=== PATIENT | female | born 1970 | race Caucasian/White ===

== ENCOUNTER 2018-06-18 10:27 | Outpatient (CLI) | payer OTHER | END 2018-06-18 10:33 | disposition home or self-care (01) | LOC: SONOGRAMA 10:27 | DX: N92.0 Excessive and frequent menstruation with regular cycle (principal); N84.0 Polyp of corpus uteri ==

== ENCOUNTER 2018-08-15 05:58 | Day surgery (SDC) | payer OTHER ==
[~2018-08-15 05:58] MED LIST: COUMADIN5 MG PO
[2018-08-15] MEDS ORDERED: DOXYCYCLINE HY100 MG PO (12:06)
[2018-08-15] MEDS ORDERED: CODE1TAB37 PO (12:06)
== END 2018-08-15 17:01 | disposition home or self-care (01) ==
LOC: CIR.AMB 05:58
DX: N84.0 Polyp of corpus uteri (principal); D25.0 Submucous leiomyoma of uterus